=== PATIENT | male | born 2000 | race Caucasian/White ===

== ENCOUNTER → 2022-05-08 | Outpatient (CLI) | payer BC ==
--- NOTE | 2022-05-08 15:34 | CT ---
EXAMINATION TYPE: CT chest w con DATE OF EXAM: 05/08/2022 COMPARISON: 02/05/2022. HISTORY: Hemoptysis. CT DLP: 413 mGycm Automated exposure control for dose reduction was used. TECHNIQUE: CT scan of the chest is performed with IV Contrast, patient injected with 70 mL of Isovue 300. MIP I mages are created on CT scanner and reviewed. 3D reconstructed images are created on an independent w orkstation and reviewed. FINDINGS: LUNGS: The lungs are grossly clear, there is no concerning parenchymal mass or nodule identified. T here is no pleural effusion or pneumothorax seen. The tracheobronchial tree is patent. MEDIASTINUM: There are no greater than 1 cm hilar or mediastinal lymph nodes. No pericardial effusi on is seen. OTHER: No additional significant abnormality is seen. IMPRESSION: No acute abnormality in the chest or findings to explain hemoptysis.
== END | disposition home or self-care (01) ==
LOC: RADCTMAIN 14:57
PROVIDERS: ATTEND Internal Medicine
DX: R04.2 Hemoptysis (principal)
CPT/HCPCS: 71260; Q9967

== ENCOUNTER → 2023-12-11 | Outpatient (CLI) | payer BC ==
--- NOTE | 2023-12-11 12:52 | CA ---
Stress Echo Report Renny Smallwood Age: 23 Gender: M : 2000 Exam Date: 12/11/2023 09:40 Exam Location: [facility] Ht (in): 66 Wt (lb): 140 Ordering Physician: Percy Faust MD ([id number]) Referring Physician: ELIN,, Heavy Forging Machine Operator: GUNJAN Technologist Procedure CPT: Indication: R07.2,R94.31 ABNORMAL ELECTROCARDIOGRAM [ECG] [EKG ICD-9 Codes: Rhythm: Patient History: CHEST PAIN, PALPITATIONS, HYPERCHOLESTEROLEMIA, FAMILY HX OF HEART DISEASE, CURRENT SMOKER, ASTHMA Cardiac Medications: Medications in past 24 hours: Contrast: Stress Results Protocol: Wayne Total dose(mL): Exercise Duration (min:sec): 13:[address] Depression (mm): 2 Angina Score: 0 Jain Score: 3.13 METS: 13.3 Resting HR: 106 Resting BP: 130 / 81 Peak HR: 181 Peak BP: 199 / 92 Max Predicted HR: 195 93 % Max Predicted HR Target HR: 166 Double Product: [id number] Stress Summary: The patient's target heart rate was achieved BP Response: Reason for Termination: MAX EXERTION/TARGET HR Cardiac Symptoms: NO SYMPTOMS ECG Analysis Resting ECG: Normal sinus rhythm, normal ECG Stress ECG: Greater than 1 mm of horizontal or downsloping ST depression - inferior leads Arrhythmia: None Echo Analysis Resting Echo: Normal resting echocardiogram. Peak Echo Analysis: Normal treadmill stress echocardiogram. MEASUREMENTS (Male/Female) Normal Values CONCLUSIONS 1. Excellent exercise tolerance 2. Strongly positive electrocardiographic stress testing with [address] segment depression that resolved slowly in recovery 3. Normal stress echocardiogram with no evidence of stress induced ischemia Dr. Joanna Lacy MD (Electronically Signed) Final Date: 11 Dec 2023 12:51
== END | disposition home or self-care (01) ==
LOC: RADNMMAIN 09:18
PROVIDERS: ATTEND Internal Medicine Interventional Cardiology
DX: R94.31 Abnormal electrocardiogram [ECG] [EKG] (principal); R07.2 Precordial pain; R00.2 Palpitations; E78.00 Pure hypercholesterolemia, unspecified; J45.909 Unspecified asthma, uncomplicated; F17.200 Nicotine dependence, unspecified, uncomplicated; Z82.49 Family history of ischemic heart disease and other diseases of the circulatory system
CPT/HCPCS: 93351